=== PATIENT | female | born 2000 | race Caucasian/White ===

== ENCOUNTER 2020-12-01 10:00 | Emergency (ER) | payer OTHER ==
--- OUTSIDE RECORDS SUMMARY | 2020-12-01 10:08 | XMS REPORT | Continuity of Care Document ---
:2000 Author Organization [facility] t Address [address] [place] [address] [place] [id number] Care Team Providers Name Role Phone Unavailable Unavailable Unavailable Problems This patient has no known problems. Allergies, Adverse Reactions, Alerts This patient has no known allergies or adverse reactions. Medications This patient has no known medications. Procedures This patient has no known procedures. Results This patient has no known results.
--- NOTE | 2020-12-01 10:49 | EDPHYS ---
Physician Documentation [facility] Name: Kateryna Reyna Age: 19 yrs Sex: Female : 2000 Arrival Date: 12/01/2020 Time: 10:00 Bed 28 Private MD: ED Physician Paolo Rosales HPI: 12/01 10:50 This 19 yrs old Female presents to ER via Ambulatory with complaints of jr8 Abscess, Facial Swelling. 10:50 This is a 19-year-old female that presented emergency room with complaints of facial jr8 swelling and pain. Patient admits to having poor dentition and has not seen a dentist in several years. Started to have pain with facial swelling to the left lower jaw for the past 48 hours or so. Started to become worse so came to the emergency room for further evaluation. Denies fevers at this time.. - Immunization history:: Adult Immunizations Client reports receiving the 1st dose of the Covid vaccine. - Social history:: Smoking status: Patient reports the use of cigarette tobacco products, smokes one-half pack cigarettes per day. ROS: 10:50 Eyes: Negative for injury, pain, redness, and discharge, Neck: Negative for injury, jr8 pain, and swelling, Cardiovascular: Negative for chest pain, palpitations, and edema, Respiratory: Negative for shortness of breath, cough, wheezing, and pleuritic chest pain, Abdomen/GI: Negative for abdominal pain, nausea, vomiting, diarrhea, and constipation, Back: Negative for injury and pain, MS/Extremity: Negative for injury and deformity, Skin: Negative for injury, rash, and discoloration, Neuro: Negative for headache, weakness, numbness, tingling, and seizure. 10:50 ENT: Positive for dental pain, Gum pain Exam: 10:50 Constitutional: This is a well developed, well nourished patient who is awake, alert, jr8 and in no acute distress. 10:50 Head/face: Noted is swelling, that is mild, of the left jaw, tenderness, that is mild, of the left jaw. 10:50 ENT: Exam is negative for earache, ear discharge, TM abnormalities, nasal discharge, Mouth: Lips: moist, Oral mucosa: pink and intact, moist, Gums: pink, Tongue: is moist, Posterior pharynx: Airway: patent, Tonsils: are normal in appearance, Uvula: midline, Dental exam: dental caries, that is moderate, diffusely, gum swelling, that is moderate, specifically in the lower left first molar (#19), lower left second bicuspid (#20) and lower left first bicuspid (#21), pain, that is moderate, specifically in the lower left first molar (#19), lower left second bicuspid (#20) and lower left first bicuspid (#21). Vital Signs: 10:27 BP 134 / 95; Pulse 91; Resp 18; Temp 98.6; Pulse Ox 99% on R/A; Weight 68.95 kg; Height ch5 5 ft. 3 in. (160.02 cm); Pain 10/10; 10:31 BP 134 / 89; Pulse 79; Resp 18; Pulse Ox 100% ; Pain 9/10; ch5 10:27 Body Mass Index 26.93 (68.95 kg, 160.02 cm) ch5 Procedures: 10:44 Nerve block: (dental) of left inferior alveolar nerve, Medication: Lidocaine 2% without jr8 epinephrine, Amount: 2 mls were injected, Effect: the patient has resolution of the pain, Set up for procedure. Performed by Alvaro CULVER Patient tolerated well. MDM: 10:20 Patient medically screened. jr8 10:44 Data reviewed: vital signs, nurses notes, and as a result, I will discharge patient. jr8 Data interpreted: Pulse oximetry: on room air is 100 %. Interpretation: normal. Counseling: I had a detailed discussion with the patient and/or guardian regarding: the historical points, exam findings, and any diagnostic results supporting the discharge/admit diagnosis, the need for outpatient follow up, a dentist, to return to the emergency department if symptoms worsen or persist or if there are any questions or concerns that arise at home. ED course: Was able to draw about 1 mL of blood in pustulous fluid from the left inferior alveolar region. We will put patient on antibiotics and have her follow-up with dentist within the next 48 to 72 hours. Signs and symptoms given to patient to watch for that would indicate need for further evaluation in the emergency room. Patient good with plan at this time and will follow up with dentist.. Administered Medications: No medications were administered Disposition: 15:19 Co-signature as Attending Physician, Paolo Rosales MD I agree with the assessment and rn plan of care. Attestation: The patient's history, exam findings, diagnostics, and a summary of any interventions or procedures was reviewed in detail with Alvaro CULVER. Disposition Summary: 12/01/20 10:49 Discharge Ordered Location: Home jr8 Problem: new jr8 Symptoms: have improved jr8 Condition: Stable jr8 Diagnosis - Periapical abscess without sinus jr8 Followup: jr8 - With: Rosalio Zapien DDS - When: 2 - 3 days - Reason: Recheck today's complaints, Continuance of care, Re-evaluation by your physician Discharge Instructions: - Discharge Summary Sheet jr8 - Dental Abscess jr8 Forms: - Medication Reconciliation Form jr8 - Thank You Letter jr8 - Antibiotic Education jr8 - Prescription Opioid Use jr8 Prescriptions: - Augmentin 875-125 mg Oral Tablet - take 1 tablet by ORAL route every 12 hours for 10 days; 20 tablet; Refills: 0, jr8 Product Selection Permitted - Ibuprofen 800 mg Oral Tablet - take 1 tablet by ORAL route every 12 hours As needed take with food; 20 tablet; jr8 Refills: 0, Product Selection Permitted Signatures: Paolo Rosales MD MD rn Roszak, Josh, PA PA jr8 Jesus Sandoval, RN RN ch5
--- NOTE | 2020-12-01 10:49 | ER ---
Nurse's Notes [facility] Name: Kateryna Reyna Age: 19 yrs Sex: Female : 2000 Arrival Date: 12/01/2020 Time: 10:00 Bed 28 Private MD: Diagnosis: Periapical abscess without sinus Presentation: 12/01 10:27 Chief complaint: Patient states: Dental pain and jaw swollen. Coronavirus screen: 5 Vaccine status: Patient reports receiving the 1st dose of the Covid vaccine. Ebola Screen: Patient negative for fever greater than or equal to 101.5 degrees Fahrenheit, and additional compatible Ebola Virus Disease symptoms Patient denies exposure to infectious person. Patient denies travel to an Ebola-affected area in the 21 days before illness onset. Initial Sepsis Screen: Does the patient meet any 2 criteria? No. Patient's initial sepsis screen is negative. Does the patient have a suspected source of infection? Yes: Other: Dental. Risk Assessment: Do you want to hurt yourself or someone else? Patient reports no desire to harm self or others. 10:27 Method Of Arrival: Ambulatory [facility] 10:27 Method Of Arrival: Ambulatory [facility] 10:27 Acuity: CYNDY 4 5 Triage Assessment: 10:27 General: Appears uncomfortable, Behavior is calm. 5 - Immunization history:: Adult Immunizations Client reports receiving the 1st dose of the Covid vaccine. - Social history:: Smoking status: Patient reports the use of cigarette tobacco products, smokes one-half pack cigarettes per day. Screenin:31 Abuse screen: Denies threats or abuse. Denies injuries from another. Nutritional [facility] screening: No deficits noted. Tuberculosis screening: No symptoms or risk factors identified. Fall Risk None identified. Vital Signs: 10:27 BP 134 / 95; Pulse 91; Resp 18; Temp 98.6; Pulse Ox 99% on R/A; Weight 68.95 kg; Height ch5 5 ft. 3 in. (160.02 cm); Pain 10/10; 10:31 BP 134 / 89; Pulse 79; Resp 18; Pulse Ox 100% ; Pain 9/10; ch5 10:27 Body Mass Index 26.93 (68.95 kg, 160.02 cm) [facility] ED Course: 10:00 Patient arrived in ED. as 10:20 Alvaro Almaraz PA is PHCP. jr8 10:20 Lio Shepard MD is Attending Physician. jr8 10:21 Jesus Sandoval, RN is Primary Nurse. ch5 10:30 Triage completed. ch5 10:31 Bed in low position. Call light in reach. Side rails up X2. ch5 10:31 No provider procedures requiring assistance completed. ch5 10:47 Rosalio Zapien DDS is Referral Physician. jr8 11:31 Attending Physician role handed off by Lio Shepard MD rn 11:31 Paolo Rosales MD is Attending Physician. rn Administered Medications: No medications were administered Outcome: 10:49 Discharge ordered by . jr8 11:39 Patient left the ED. iw Signatures: Maria T Alejo Irene, JESSICA RN Paolo Rosales MD MD rn Roszak, Josh, PA PA jr8 Jesus Sandoval RN RN [facility]
[2020-12-01] MEDS ORDERED: LIDOCAINE 2% MPF 5 ML VIAL ONE (10:57)
[2020-12-01 12:21] VITALS: TEMP 98.6
[2020-12-01 12:23] VITALS: BP 134/89; O2SAT 100
== END 2020-12-01 11:39 | disposition home or self-care (01) ==
LOC: ER 10:00
DX: K04.7 Periapical abscess without sinus (principal); F17.210 Nicotine dependence, cigarettes, uncomplicated
CPT/HCPCS: 99281